=== PATIENT | male | born 1965 | race Caucasian/White ===

== ENCOUNTER 2017-08-04 09:41 | Inpatient (IN) ==
--- NOTE | 2017-08-03 16:36 | Discharge Summary ---
<Jessica Scott - Last Filed: 08/03/17 16:37> Date of Encounter: 08/03/17 - Discharge Diagnosis (1) Osteoarthritis of right hip Priority: Primary Status: Chronic (2) Tobacco dependency Priority: Secondary Status: Chronic (3) History of kidney cancer Priority: Secondary Status: Chronic - Discharge Medications Home Medications: Aspirin Enteric Coated [Aspirin EC] 325 mg PO DAILY 21 Days #21 tablet. [Rx] OxyCODONE Immed Rel [Roxicodone 5 MG] 5 mg PO Q6HR PRN 7 Days #28 tablet [Rx] Gabapentin [Neurontin] 600 mg PO TID 08/04/17 [History] Nabumetone [Relafen] 500 mg PO BID 08/04/17 [History] Tizanidine HCl 4 mg PO BID PRN 08/04/17 [History] Allergies/Adverse Reactions: 3 Allergy/AdvReac Type Severity Reaction Status Date / Time No Known Allergies Allergy Verified 11/11/15 19:19 Primary care physician: PCP NONE - Patient Status Disposition: Home, Self-Care Condition: Good - Discharge Instructions Follow Up With: NONE,PCP [Primary Care Provider] - - Hospital Course Hospital course: Mr. Infante is a 52 year old male - Time Spent with Patient Total time spent providing and/or coordinating discharge services: <Fidel Florez - Last Filed: 08/05/17 10:13> Date of Encounter: 08/05/17 Time of Encounter: 10:13 - Discharge Diagnosis (1) Osteoarthritis of right hip Priority: Primary Status: Chronic Qualifiers: Osteoarthritis type: unspecified Qualified Code(s): M16.11 - Unilateral primary osteoarthritis, right hip (2) Tobacco dependency Priority: Secondary Status: Chronic (3) History of kidney cancer Priority: Secondary Status: Chronic (4) Status post total hip replacement, right Priority: Primary Status: Acute Primary care physician: PCP NONE - Patient Status Functional capacity at discharge: uses cane/walker Overall status at discharge: patient is progressing back to baseline - Hospital Course Hospital course: Mr. Infante is a 52 year old male Status post right total hip replacement The patient had an uneventful postoperative course. They received antibiotics and physical therapy and were discharged in stable condition. There will follow -up in the office in 2 weeks. - Time Spent with Patient Total time spent providing and/or coordinating discharge services:
--- NOTE | 2017-08-03 16:39 | Physician Discharge Referral ---
ExtendedCare Referral Info Transfer To: [facility] Provider in Charge: Dr Fidel Florez - Diagnosis (1) Osteoarthritis of right hip Priority: Primary Status: Chronic (2) Tobacco dependency Priority: Secondary Status: Chronic (3) History of kidney cancer Priority: Secondary Status: Chronic (4) Status post total hip replacement, right Priority: Primary Status: Acute Expected Duration of Placement: less than 30 days Prognosis: Good Aware of Diagnosis: Patient Aware of Prognosis: Patient - Transfer Medications Prescriptions: OxyCODONE Immed Rel [Roxicodone 5 MG] 5 mg PO Q6HR PRN 7 Days #28 tablet PRN Reason: Pain Aspirin Enteric Coated [Aspirin EC] 325 mg PO DAILY 21 Days #21 tablet. Home Medications: levoFLOXacin [Levaquin] 500 mg PO DAILY #7 tablet 11/11/15 [Rx] Aspirin Enteric Coated [Aspirin EC] 325 mg PO DAILY 21 Days #21 tablet. [Rx] OxyCODONE Immed Rel [Roxicodone 5 MG] 5 mg PO Q6HR PRN 7 Days #28 tablet [Rx] Allergies/Adverse Reactions: 3 Allergy/AdvReac Type Severity Reaction Status Date / Time No Known Allergies Allergy Verified 11/11/15 19:19 - Respiratory Orders Smoking Cessation: Smoking cessation has been advised. For more information, call the [employer] Tobacco Quit Line at 6-075-RDDT-NOW. - Ancillary Orders May use pressure relief devices daily prn, May go on JONATAN w/family/respon republican w /meds at nurse discretion PRN, May consult with Dentist, Supervisor Sewing Room, Humidifier Maintenance Worker PRN - Mobility Orders Chair, Ambulate - Rehabiliation Orders Rehab Potential: Good Rehab Orders: ROM Exercises, Evaluation for Physical Therapy, Evaluation for Occupational Therapy Other: Total Hip replacement Precautions Apply cold therapy 3-6x/day for 20 minutes at a time. Encourage ambulation throughout the day and incentive spirometer 10x/hour. Elevate affected extremity as tolerated. Brace: Wear hip abduction pillow when laying/sleeping - Treatments Skin tear care topically daily PRN per policy List/Other: Opsite placed. Keep dressing intact until first follow up appointment. If > 50% saturated, notify office, remove dressing and place appropriate dressing back in place. Leave Zipline intact. Opsite dressing is water resistant, not water- proof. OK to shower, but do not get dressing wet. - Diet Orders Regular CERTIFICATION: I certify that the transfer of the above named patient to an Extended Care Facility is necessary for the continuing treatment of the diagnosis listed. The above information is true and accurate reflection of patient's current condition. Confidential - Redisclosure prohibited without a patient's written consent.
[~2017-08-04 09:41] MED LIST: Povidone-Iodine 22.5 ML, Sodium Chloride IRRigation 500 ML IR ONE; Povidone-Iodine 5% 60 ML, Sodium Chloride IRRigation 500 ML IR ONE
[2017-08-04] MEDS ORDERED: Albuterol 2.5 MG/3 ML NEBULIZER IH ONE ×2 (10:10→11:16)
[2017-08-04] MEDS ORDERED: CeFAZolin Syr 2,000MG/20 ML 2,000 MG/20 ML SYRINGE IVPB ONE (10:10)
[2017-08-04] MEDS ORDERED: Gabapentin 300 MG CAPSULE PO STA (10:11)
[2017-08-04] MEDS ORDERED: Famotidine 20 MG/2 ML VIAL IVP ONE (10:12)
[2017-08-04] MEDS ORDERED: Pregabalin 75 MG CAPSULE PO ONE (10:15)
[2017-08-04] MEDS ORDERED: Plasma-Lyte A (PH 7.4) 1,000 ML IVC SCH ×2 (10:15→11:30)
[2017-08-04] MEDS ORDERED: ROPIVACAINE HCL/PF 0.5% 30 ML VIAL ONE (10:17)
--- NOTE | 2017-08-04 10:19 | History & Physical Report ---
Date of Encounter: 08/04/17 Time of Encounter: 10:19 24 Hour HP Update - Instructions Instructions: If the History and Physical is less than 30 days old and was completed prior to A.M. admission and or procedure and has NOT been updated on calendar day of procedure please complete this update prior to performing procedure. - Update Patient reports changes in Medical Condition: No Changes in examination, assessment, or condition: No Changes in Medication: No Preop tests/diagnostics Reviewed: Yes Surgery Remains Indicated: Yes Consent for Planned Operative Procedure(s) Verified: Yes - Pre-Operative Checklist Preoperative Checklist Indicated: No Prophylactic Antibiotic Ordered: Yes Is VTE Prophylaxis Indicated?: Yes
--- NOTE | 2017-08-04 10:19 | Anesthesia Evaluation PreOp ---
Date of Encounter: 08/04/17 Time of Encounter: 10:20 - Past History Planned Operation: Rt THR Cardiac History: Denies any Significant Hx Pulmonary History: Smoker SOLUTIONS ENGINEER History: Denies Any Significant HX Other Medical History: Denies Any Significant HX Anesthesia History: No Prior Anesthetic Complications Alcohol Use: none Drug use: none Medications and Allergies levoFLOXacin [Levaquin] 500 mg PO DAILY #7 tablet 11/11/15 [Rx] Aspirin Enteric Coated [Aspirin EC] 325 mg PO DAILY 21 Days #21 tablet. [Rx] OxyCODONE Immed Rel [Roxicodone 5 MG] 5 mg PO Q6HR PRN 7 Days #28 tablet [Rx] 3 Allergy/AdvReac Type Severity Reaction Status Date / Time No Known Allergies Allergy Verified 11/11/15 19:19 - Meds/Allergy Pre-op Review Medications Reviewed: Yes Allergies Reviewed: Yes Beta Blockers on Current Med List: No Anesthesia Results - Labs Laboratory Tests 07/28/17 07/28/17 10:30 10:30 Hgb 14.9 Hct 46.4 Plt Count 369 Sodium 138 Potassium 4.1 BUN 13 Creatinine 0.71 Anesthesia Exam O2 Sat Height 1.78 m Height 1.78 m Weight 68.039 kg Weight 68.039 kg O2 Sat by Pulse Oximetry 99 Vital Signs Temp Pulse Resp BP Pulse Ox 98.0 F 56 16 167/72 99 08/04/17 10:19 08/04/17 10:19 08/04/17 10:19 08/04/17 10:19 08/04/17 10:19 Height: 5'10 Weight: 150 lbs NPO (# of Hours): MN Pain Scale: 0 - HEENT Pupil (Motor): Pupils equal, EOMI Mallampati: II Denture Type: Upper: Complete Oral Opening: Greater than 3 - SOLUTIONS ENGINEER LOC: Oriented SOLUTIONS ENGINEER Motor: Normal RUE, Normal LUE, Normal RLE, Normal LLE, Normal Face SOLUTIONS ENGINEER Sensory: Normal: RUE, LUE, RLE, LLE, Face - Cardiac Rhythm: Regular Murmur: None JVD: No Carotid Bruit: No - Pulmonary Breath Sounds: bilateral Clear Respiratory Effort: Symmetrical Anesthesia Assess/Plan ASA Score: 2 Modified Holland Scale for Level of Consciousness: Cooperative, oriented, and tranquil Anesthetic Plan: General, Regional Monitoring Plan: Standard Monitors Recovery Plan: PACU (Discussed GA, agrees to proceed)
[2017-08-04] MEDS ORDERED: *HR* FentaNYL (PF) 100 MCG/2 ML VIAL ONE ×2 (10:21→11:48)
[2017-08-04] MEDS ORDERED: *HR* Midazolam HCl 2 MG/2 ML VIAL ONE (10:22)
[2017-08-04] MEDS ORDERED: *HR* Propofol 200 MG/20 ML VIAL IVP ONE ×2 (10:22→11:24)
[2017-08-04] MEDS ORDERED: *HR* Rocuronium Bromide 50 MG/5 ML VIAL ONE (10:23)
[2017-08-04] MEDS ORDERED: Lidocaine -MPF 2% 2 ML VIAL ONE (10:23)
[2017-08-04] MEDS ORDERED: Bupivacaine-MPF 0.25% 10 ML VIAL ONE (10:30)
[2017-08-04] MEDS ORDERED: Pregabalin 75 MG CAPSULE ONE (10:45)
[2017-08-04] MEDS ORDERED: Ethanol\\Acetic Acid\\Na Ace\\Ben 1,000 ML IRRIG.SOLN IR ONE (11:05)
[2017-08-04] MEDS ORDERED: Lidocaine -MPF 4% 5 ML AMPUL ONE (11:13)
[2017-08-04] MEDS ORDERED: Naloxone 0.4 MG/ML INJ IVP PRN ×2 (11:16→13:56)
[2017-08-04] MEDS ORDERED: *HR* HYDROmorphone (PF) 1 MG/ML SYRINGE IVP PRN (11:16)
[2017-08-04] MEDS ORDERED: Ondansetron 4 MG/2 ML VIAL IVP ONE (11:16)
[2017-08-04] MEDS ORDERED: Dexamethasone 4 MG/ML VIAL ONE (11:18)
--- NOTE | 2017-08-04 12:01 | Anesthesia Procedures ---
Date of Encounter: 08/04/17 Time of Encounter: 11:59 Procedures: Anesthesia - Nerve Block Procedure Date: 08/04/17 Time: 10:55 Allergies/Adv Reactions: Allergies No Known Allergies Allergy (Verified 11/11/15 19:19) Pre-op Diagnosis: oa right hip Surgical Procedure: right total hip Checklist: Correct Patient Identifier, Correct procedure, History checked Correct side: Right Blood Thinner: No Monitor Applied: EKG, BP, Pulse Oximetry Supplemental Oxygen via Nasal Cannula (L/min): 2 Sedation: Versed (mg): 2 Sedation: Fentanyl (mcg): 100 Indication: Post Op Analgesia Pre-op Neuro Deficits: No Block Type: Other (fascia iliaca) Catheter placed: No Sterile Technique: Yes Ultrasound used: Yes Anatomy identified: Yes Visual spread of Local: Yes Neuro Stimulation: No Prep: Chlorhexadine Needle: 22 x 50 mm Stimuplex Local: Ropivacaine (0.5%) Volume (cc): 40 Number of Attempts: 1 Complications: None/effective block
[2017-08-04] MEDS ORDERED: *HR* Metoprolol 5 MG/5 ML VIAL IVP ONE (12:03)
[2017-08-04] MEDS ORDERED: *HR* HYDROmorphone 2 MG/ML SYRINGE ONE (12:04)
--- NOTE | 2017-08-04 12:22 | Orthopedic Operative Note ---
Date of procedure: 08/04/17 Pre-op diagnosis: Right hip arthritis Post-op diagnosis: same Procedure: Procedure: Right Total Hip Replacment robotic-assisted Estimated blood loss: 300 cc Hardware: Metal and polyethylene replacement. [place] DM Cup: 60 cup Femoral size9 stem Head: 0head with Modesta Procedural Notes: Grade 4 arthritic changes femoral head acetabular socket, procedure performed with robotic assistance. 0 mm leg length discrepancy Operative procedure: The patient was brought to the operating room and placed on the operating room table. After general anesthesia was administered the patient was placed in the lateral decubitus position with the operative leg up. All pressure points were padded appropriately and the head was stabilized in the neutral position. The operative extremity was prepped and draped in the sterile surgical fashion patient received IV antibiotic prior to skin incision. 3 Steinmann pins were placed in the iliac crest 3 cm proximal to the anterior superior iliac spine this was for the robotic-assisted sensor. This was done through a small 2 cm incision. A standard posterior approach is made to the operative hip, the incision was made through the skin and subcutaneous tissue hemostasis was obtained with Bovie cautery. Using careful sharp dissection the fascia was identified and incised exposing the external rotators. The femoral checkpoint was placed leg length was measured at this time utilizing robotic assistance. The external rotators were released off the greater trochanter and tagged with # 2 FiberWire suture. The capsule was T'd open and the hip was brought into internal rotation. Patient noted to have grade 4 arthritic changes femoral head. The femoral neck cut was made at the appropriate level roughly Xmm proximal to the lesser trochanter aced on preoperative templating. An anterior capsulotomy was performed for the anterior retractor. Soft tissues removed from the acetabulum. Patient noted to have grade 4 arthritic changes acetabulum. The acetabulum checkpoint was placed confirmed. The acetabulum was then mapped with robotic assistance. Based on the preoperative plan the acetabulum was reamed in one step with a 59 reamer. The 60 acetabulum was impacted with robotic assistance and 40 degrees of abduction and 11 degrees of anteversion. The hip was brought back in to internal rotation and prepared with the box fabricator followed by the canal finder followed by the reaming process to a size 9 broaching process in 20 degrees anteversion. It was broached up to the appropriate size 9. Trial reduction revealed leg lengths close to normal. The femoral implant was impacted in place in 20 degrees of anteversion. Trial reduction found the hip to be stable with 0 head and Modesta. The trials were removed and the real implants were impacted in place. The hip was reduced, patient had robotic confirmed leg length of 5 mm longer than the contralateral side. The hip had excellent stability with forward flexion to 90 degrees adduction of 30 degrees and internal rotation of 60 degrees. The hip had no shuck. The hips after 2 minutes with a Betadine saline solution. It was irrigated out with 2 L of pulse irrigation. The checkpoints were removed, Steinmann pins were removed. The hip was closed by the PA. The deep tissue was irrigated and closed deep with #1 PDS suture superficially with 0 PDS suture and skin was closed with Dermabond and zip tie. The patient was placed in a sterile dressing and abduction pillow. The patient was extubated and transferred to the recovery room in stable condition. Anesthesia: EMILIANAA Surgeon: Fidel Florez Was there an lead dental assistant present: No Estimated blood loss (cc): 300 Condition: stable Disposition: PACU
--- NOTE | 2017-08-04 13:24 | Anesthesia Evaluation Post Op ---
Date of Encounter: 08/04/17 Time of Encounter: 13:22 - Vital Signs Vital Signs: Vital Signs/O2 Sat, Most Current Temp Pulse Resp BP Pulse Ox 98.3 F 65 14 120/77 96 08/04/17 13:13 08/04/17 13:13 08/04/17 13:13 08/04/17 13:13 08/04/17 13:13 - Lungs Lungs: Clear Ascult./Percussion - Airway Airway: Non-obstructed - Cardiovascular Regular Rate - Mental Status Mental Status: Alert & Oriented, Answers Appropriately - Pain Pain Scale: 6 Pain Scale used: Numeric (1 - 10) - Nausea Vomiting Nausea Vomiting: Not Present - Hydration Hydration: Ice chips, Has not voided Notes: 08/04/17 13:23 pt resting comfortably without complaints, states just received pain med - Discharge PostOp Status: Transfer Patient to floor
[2017-08-04] MEDS ORDERED: Temazepam 15 MG CAPSULE PO PRN (13:56)
[2017-08-04] MEDS ORDERED: tiZANidine 4 MG TABLET PO PRN (13:56)
[2017-08-04] MEDS ORDERED: Ondansetron 4 MG/2 ML VIAL IVP PRN (13:56)
[2017-08-04] MEDS ORDERED: Ringers Solution, Lactated 1,000 ML IVC SCH (13:56)
[2017-08-04] MEDS ORDERED: MOM Conc 10 ML UD.LIQ PO PRN (13:56)
[2017-08-04] MEDS ORDERED: *HR* OxyCODONE Immed Rel 5 MG TABLET PO PRN (13:56)
[2017-08-04] MEDS ORDERED: Sennosides 8.6 MG TABLET PO PRN (13:56)
[2017-08-04 14:50] LABS: Hematocrit 42.5 % (37.5-50.1); Hemoglobin 13.9 g/dL (12.9-16.9)
[2017-08-04] MEDS: Gabapentin 300 MG CAPSULE PO SCH ×2 (16:34→19:42)
[2017-08-04] MEDS: Ascorbic Acid 500 MG TABLET PO SCH (16:35)
[2017-08-04] MEDS: *HR* OxyCODONE Immed Rel 5 MG TABLET PO PRN ×2 (16:35→23:18)
[2017-08-04] MEDS ORDERED: *HR* Enoxaparin 30 MG/0.3 ML SYRINGE SQ SCH (18:00)
[2017-08-04] MEDS: *HR* Enoxaparin 30 MG/0.3 ML SYRINGE SQ SCH (18:03)
[2017-08-04] MEDS: CeFAZolin Premix DUPLEX 2,000 MG/50 ML BAG IVPB SCH (18:51)
[2017-08-04] MEDS: Nicotine 21 MG PATCH.TD24 TD SCH (18:51)
[2017-08-04] MEDS: *HR* HYDROmorphone (PF) 1 MG/ML SYRINGE IVP PRN (19:42)
[2017-08-05] MEDS: CeFAZolin Premix DUPLEX 2,000 MG/50 ML BAG IVPB SCH (02:26)
[2017-08-05] MEDS: *HR* HYDROmorphone (PF) 1 MG/ML SYRINGE IVP PRN ×5 (02:26→13:47)
[2017-08-05] MEDS: *HR* OxyCODONE Immed Rel 5 MG TABLET PO PRN ×4 (03:49→23:46)
[2017-08-05] MEDS: *HR* Enoxaparin 30 MG/0.3 ML SYRINGE SQ SCH ×2 (05:17→17:04)
[2017-08-05 06:07] LABS: Hematocrit 34.7 % (37.5-50.1)
[2017-08-05 06:10] LABS: Hemoglobin 11.4 g/dL (12.9-16.9)
[2017-08-05 06:25] LABS: BUN/Creatinine Ratio 13 (6-26); Blood Urea Nitrogen 10 mg/dL (6-20); Calcium 8.3 mg/dL (8.6-10.3); Carbon Dioxide 29 mEq/L (23-29); Chloride 103 mEq/L (98-107); Glucose 115 mg/dL (70-105); Osmolality,Calculated 284 (280-300); Sodium 137 mEq/L (136-145); eGFR For African Americans > 60 (> 60); eGFR For Non-African Americans > 60 (> 60)
[2017-08-05] MEDS: Gabapentin 300 MG CAPSULE PO SCH ×3 (08:40→21:02)
[2017-08-05] MEDS: Ascorbic Acid 500 MG TABLET PO SCH ×2 (08:40→15:55)
[2017-08-05] MEDS: Multivit/Ca/Min/Fe/FA 1 TAB TABLET PO SCH (08:40)
--- NOTE | 2017-08-05 10:14 | Orthopedics Progress Note ---
Date of Encounter: 08/05/17 Time of Encounter: 10:13 - Assessment and Plan (1) Osteoarthritis of right hip Current Visit: No Status: Chronic Qualifiers: Osteoarthritis type: unspecified Qualified Code(s): M16.11 - Unilateral primary osteoarthritis, right hip (2) Tobacco dependency Current Visit: No Status: Chronic (3) History of kidney cancer Current Visit: No Status: Chronic (4) Status post total hip replacement, right Current Visit: No Status: Acute Subjective Interval history: Patient was seen this morning doing well without complaints. Afebrile vital signs stable. Operative extremity: Neurovascularly intact Dressing clean dry and intact Calves nontender Assessment and plan: Continue with postoperative care Hematocrit 34 discharged today Objective Vital signs: Vital Signs Temp Pulse Resp BP Pulse Ox 08/05/17 06:34 98.8 F 96 18 126/77 98 08/05/17 03:58 99.6 F 91 17 120/72 97 08/04/17 23:54 98.9 F 92 17 115/64 96 08/04/17 17:15 98.2 F 109 16 124/71 97 08/04/17 16:00 98.2 F 98 16 126/73 97 08/04/17 15:38 68 19 108/71 95 08/04/17 15:00 98.2 F 109 16 124/71 97 08/04/17 14:25 98.2 F 70 16 125/77 98 08/04/17 14:00 98.2 F 68 19 108/71 99 08/04/17 13:33 98.4 F 68 14 107/74 94 08/04/17 13:23 66 14 116/74 95 08/04/17 13:13 98.3 F 65 14 120/77 96 08/04/17 13:03 75 16 123/79 96 08/04/17 12:53 82 16 118/81 97 08/04/17 12:43 98.4 F 99 16 131/87 98 08/04/17 11:15 72 18 105/65 100 08/04/17 11:05 75 18 106/63 100 08/04/17 10:50 70 18 111/75 99 08/04/17 10:27 98.0 F 56 16 167/72 99 08/04/17 10:19 98.0 F 56 16 167/72 99 Intake and Output 01/05/1208/05/17 08/05/17 23:59 07:59 15:59 Intake Total 100 / 100 100 / 100 Output Total 400 / 400 Balance 100 / 100 -300 / -300 Intake: IV Fluids 50 / 50 Ancef Premix DUPLEX 2,000 mg In 50 / 50 50 ml @ 100 mls/hr IVPB Q8H [place] Rx#:[id number] Oral 50 / 50 100 / 100 Output: Urine 400 / 400 - Labs CBC & BMP: 08/05/17 05:48 08/05/17 05:48 Labs: Abnormal lab results Hgb 11.4 g/dL (12.9-16.9) L D 08/05/17 05:48 Hct 34.7 % (37.5-50.1) L 08/05/17 05:48 Glucose 115 mg/dL (70-105) H 08/05/17 05:48 Calcium 8.3 mg/dL (8.6-10.3) L 08/05/17 05:48 - VTE Documentation of Mechanical Device: Venous foot pump, device Consult Discharge Plan - Plan Referrals: NONE,PCP [Primary Care Provider] -
[2017-08-05] MEDS: Nicotine 21 MG PATCH.TD24 TD SCH (17:04)
--- NOTE | 2017-08-05 17:34 | Event Note ---
Date of Encounter: 08/05/17 Time of Encounter: 12:00 PCR- POD#1 R KRIS Florez 08/04/17 PCR - Patient seen at bedside. Pain control: Adequate Participating in PT. All questions and concerns addressed. Educated on use of incentive spirometer, ambulation, and hydration. Patient educated on post-operative restrictions and care. Addressed: see above. D/C plan: ECF - pending approval as he is doing very well with therapy.
[2017-08-06] MEDS: *HR* OxyCODONE Immed Rel 5 MG TABLET PO PRN ×2 (04:17→08:18)
[2017-08-06 04:45] LABS: Hemoglobin 10.6 g/dL (12.9-16.9)
[2017-08-06 05:01] LABS: BUN/Creatinine Ratio 14 (6-26); Blood Urea Nitrogen 9 mg/dL (6-20); Calcium 8.3 mg/dL (8.6-10.3); Carbon Dioxide 29 mEq/L (23-29); Chloride 105 mEq/L (98-107); Glucose 136 mg/dL (70-105); Osmolality,Calculated 283 (280-300); Sodium 136 mEq/L (136-145); eGFR For African Americans > 60 (> 60); eGFR For Non-African Americans > 60 (> 60)
[2017-08-06] MEDS: *HR* Enoxaparin 30 MG/0.3 ML SYRINGE SQ SCH (06:01)
--- NOTE | 2017-08-06 06:42 | Orthopedics Progress Note ---
Date of Encounter: 08/06/17 Time of Encounter: 06:41 - Assessment and Plan (1) Osteoarthritis of right hip Current Visit: No Status: Chronic Qualifiers: Osteoarthritis type: unspecified Qualified Code(s): M16.11 - Unilateral primary osteoarthritis, right hip (2) Tobacco dependency Current Visit: No Status: Chronic (3) History of kidney cancer Current Visit: No Status: Chronic (4) Status post total hip replacement, right Current Visit: No Status: Acute Subjective Interval history: Patient was seen this morning doing well without complaints. Afebrile vital signs stable. Operative extremity: Neurovascularly intact Dressing clean dry and intact Calves nontender Assessment and plan: Continue with postoperative care Hematocrit 34 discharged today Objective Vital signs: Vital Signs Temp Pulse Resp BP Pulse Ox 08/06/17 01:58 99.1 F 110 16 124/61 96 08/05/17 23:16 99.5 F 97 18 108/62 95 08/05/17 16:00 99.7 F H 99 15 116/66 97 08/05/17 09:55 98.5 F 94 16 128/81 99 Intake and Output 08/05/17 08/05/17 08/06/17 15:59 23:59 07:59 Output Total 1650 / 1650 Balance -1650 / -1650 Output: Urine 1650 / 1650 Other: # Voids 1 - Labs CBC & BMP: 08/06/17 04:24 08/06/17 04:24 Labs: Abnormal lab results Hgb 10.6 g/dL (12.9-16.9) L 08/06/17 04:24 Hct 32.0 % (37.5-50.1) L 08/06/17 04:24 Creatinine 0.65 mg/dL (0.70-1.30) L 08/06/17 04:24 Glucose 136 mg/dL (70-105) H 08/06/17 04:24 Calcium 8.3 mg/dL (8.6-10.3) L 08/06/17 04:24 - VTE Documentation of Mechanical Device: Venous foot pump, device Consult Discharge Plan - Plan Referrals: Jessica Scott, PAC [Physician Early Childhood Director] - 08/12/17 2:00 pm (& also, , August 19, 2017 at 2:30 PM) Fidel Florez MD [Partnered Physician] - 09/01/17 5:10 pm NONE,PCP [Primary Care Provider] -
[2017-08-06] MEDS: Gabapentin 300 MG CAPSULE PO SCH (08:18)
[2017-08-06] MEDS: Multivit/Ca/Min/Fe/FA 1 TAB TABLET PO SCH (08:18)
[2017-08-06] MEDS: Ascorbic Acid 500 MG TABLET PO SCH (08:19)
[2017-08-06 08:51] VITALS: BP 115/65
[2017-08-06] MEDS ORDERED: FLUARIX QUAD 2017-18 36MOS UP/PF 0.5 ML SYRINGE IM ONE (09:40)
== END 2017-08-06 11:19 | DRG 301 ==
LOC: SAMDAY 09:41 → 3NENU 13:56
PROVIDERS: ADMIT Orthopaedic Surgery; ATTEND Orthopaedic Surgery